=== PATIENT | female | born 1965 | race African-American/Black ===

== ENCOUNTER → 2019-04-09 | Outpatient (CLI) | payer OTHER ==
--- NOTE | 2019-04-09 15:12 | RAD ---
LUMBAR SPINE 2-3V DATE: 04/09/2019 12:00 AM INDICATION: Low back pain COMPARISON: None. FINDINGS: Five non-rib bearing lumbar-type vertebral bodies are present. Bones/Alignment: No evidence of acute compression fracture. 8 mm anterolisthesis of L4-5. Facet arthropathy and degenerative disc space narrowing at L4-5 and L5-S1. Miscellaneous: Right upper quadrant surgical clips. IMPRESSION: Lumbar spondylosis at L4-5 and L5-S1, with grade 1 anterolisthesis at L4-5. Electronically signed by: Michael Cox MD (04/09/2019 3:08 PM) [id number]
--- NOTE | 2019-04-09 15:13 | RAD ---
HIP LEFT 2 VIEW DATE: 04/09/2019 12:00 AM INDICATION: Left hip pain COMPARISON: None. FINDINGS: Bones: There is no evidence of acute fracture or dislocation. Joints: Mild left hip joint space narrowing. Joint is congruent IMPRESSION: Mild left hip osteoarthritis. Electronically signed by: Michael Cox MD (04/09/2019 3:10 PM) [id number]
== END | disposition home or self-care (01) ==
LOC: RAD 09:41
PROVIDERS: ATTEND Surgery
DX: M43.16 Spondylolisthesis, lumbar region (principal); M47.817 Spondylosis without myelopathy or radiculopathy, lumbosacral region; M16.12 Unilateral primary osteoarthritis, left hip; M48.07 Spinal stenosis, lumbosacral region
CPT/HCPCS: 72100; 73502